=== PATIENT | male | born 1995 | race American Indian/Alaskan Native ===

== ENCOUNTER 2019-04-15 10:06 | Emergency (ER) | payer OTHER, SELFPAY ==
[2019-04-15 10:14] VITALS: BP 115/60; PULSE 94; RESP 20; TEMP 37.7; O2SAT 99; BMI 38.9
--- NOTE | 2019-04-15 10:47 | ED_ITS ---
HPI - URI/Sore Throat General Chief Complaint: Upper Respiratory Symptoms Stated Complaint: TESTED POSTITIVE FOR STREP Time Seen by Provider: 04/15/19 10:18 Source: patient Mode of arrival: ambulatory Limitations: no limitations History of Present Illness HPI Narrative: Patient is a 23-year-old male who presents with sore throat ongoing for the last 5 days. He was seen and evaluated by PCP at the clinic actually had negative strep but clinically appeared strep and was put on Zithromax in. He was re-evaluated today had worsening symptoms. He was sent to the ED for further evaluation for possible peritonsillar abscess. He has decreased oral intake he has urinated a little bit. He is able to swallow some of his secretions however he is still spitting up some. MD Complaint: fever and sore throat Related Data Home Medications Medication Instructions Recorded Confirmed azithromycin 250 mg PO DAILY 04/15/19 Previous Rx's Medication Instructions Recorded clindamycin HCl 300 mg PO QID #28 cap 04/15/19 Allergies Allergy/AdvReac Type Severity Reaction Status Date / Time Penicillins [PENICILLINS] Allergy Unknown Verified 04/15/19 11:06 Sulfa (Sulfonamide Allergy Unknown Verified 04/15/19 11:06 Antibiotics) [SULFA (SULFONAMIDE ANTIBIOTICS)] Review of Systems Review of Systems GENERAL: Denies chills, fatigue, malaise, fever, sweats, travel HEENT: See HPI RESPIRATORY: Denies dyspnea, cough, wheezing, hemoptysis, sputum. CARDIOVASCULAR: Denies chest pain, palpitations, orthopnea, edema GASTROINTESTINAL: Denies nausea, vomiting, abdominal pain, diarrhea, constipation, melena. : Denies dysuria, frequency, incontinence, hematuria, urinary retention, flank pain. MUSCULOSKELETAL: Denies weakness, joint pain, or bony pain SKIN: No rash, no erythema, no pruritus NEUROLOGIC: Denies weakness, dizziness, headache, numbness, change in speech, confusion PSYCHIATRIC: No concerning psychosocial issues. 12 point review of systems is negative except for those stated above and HPI [facility] [place] Medical History Patient denies significant medical history (Acute) Social History Smoking Status: Never smoker Social History Smoking Status: Never smoker Exam Initial Vital Signs Initial Vital Signs: Vital Signs Temperature 99.9 F H 04/15/19 10:14 Pulse Rate 94 H 04/15/19 10:14 Respiratory Rate 20 04/15/19 10:14 Blood Pressure 115/60 04/15/19 10:14 Pulse Oximetry 99 04/15/19 10:14 GENERAL: Slightly ill-appearing male sitting upright spitting into blue bag. HEENT: Head atraumatic,EOMI, pupils reactive, PHARYNX: Erythematous petechiae on roof of mouth no uvula deviation. He does have some exudate on his right tonsil. Airway is patent CARDIOVASCULAR: Regular rate and rhythm without murmurs, rubs or gallops. RESPIRATORY: Breath sounds equal bilaterally, no wheezes rales or rhonchi. ABDOMEN: Soft, nontender. Normoactive bowel sounds all 4 quadrants. No guarding or rebound. EXTREMITIES: Normal range of motion, no clubbing or edema. Neurovascularly intact NEUROLOGICAL: Alert and oriented x4.Normal gait and speech. Cranial nerves II through XII grossly intact. SKIN: Warm, dry, no laceration, no petechiae, no rashes or lesions. Course Orders Ordered: ED Orders 04/15/19 11:00 Complete Blood Count AUTO DIFF Stat Comprehensive Metabolic Panel Stat Lactate (Lactic Acid) Stat 04/15/19 11:18 Blood Culture Stat Discontinued Medications Dexamethasone (Decadron) 10 mg IV NOW ONE Stop: 04/15/19 10:48 Last Admin: 04/15/19 11:07 Dose: 10 mg Clindamycin Phosphate (Cleocin) 600 mg in 50 mls @ 50 mls/hr IV NOW ONE Stop: 04/15/19 11:46 Last Infusion: 04/15/19 12:15 Dose: 0 mls/hr Admin: 04/15/19 11:07 Dose: 50 mls/hr Sodium Chloride (Normal Saline 0.9%) 1,000 mls @ 1,000 mls/hr IV BOLUS ONE Stop: 04/15/19 11:46 Last Infusion: 04/15/19 12:55 Dose: 0 mls/hr Infusion: 04/15/19 11:11 Dose: 450 mls/hr Admin: 04/15/19 11:07 Dose: 1,000 mls/hr Sodium Chloride (Normal Saline 0.9%) 1,000 mls @ 1,000 mls/hr IV BOLUS ONE Stop: 04/15/19 12:40 Last Infusion: 04/15/19 13:43 Dose: 0 mls/hr Admin: 04/15/19 13:00 Dose: 1,000 mls/hr Vital Signs - 8 hr 04/15/19 10:14 04/15/19 11:15 04/15/19 12:00 Temperature 99.9 F H Pulse Rate 94 H 90 88 Respiratory Rate 20 20 17 Blood Pressure 115/60 Blood Pressure [Left Arm] 118/62 120/57 L Pulse Oximetry 99 98 94 04/15/19 13:31 Temperature 99.6 F Pulse Rate 77 Respiratory Rate 18 Blood Pressure Blood Pressure [Left Arm] 111/54 L Pulse Oximetry 96 MDM - URI/Sore Throat Lab Data Attestation: I reviewed the patient's lab results. Result diagrams: 04/15/19 11:00 04/15/19 11:00 Lab Results 04/15/19 04/15/19 04/15/19 Range/Units 11:00 11:00 11:00 WBC 18.5 H (4.5-11.0) X10^3/uL RBC 5.21 (4.5-5.9) X10^6/uL Hgb 14.0 (13.5-17.5) g/dL Hct 41.7 (41-53) % MCV 80.1 (80-100) fL MCH 26.9 (26-34) PG MCHC 33.5 (30-36) % RDW 13.1 (11.6-14.8) % Plt Count 238 (150-400) X10^3/uL Neut % (Auto) 78.3 H (50-75) % Lymph % (Auto) 10.3 L (25-40) % [place] % (Auto) 11.1 (3-14) % Eos % (Auto) 0.1 L (2-4) % Baso % (Auto) 0.2 (0-2) % Neut # (Auto) 72690 H (7566-7702) /uL Lymph # (Auto) 1900 (9525-9921) /uL [place] # (Auto) 2100 H (0-900) /uL Eos # (Auto) 0 (0-450) /uL Baso # (Auto) 0 (0-100) /uL Sodium 138 (137-145) mmol/L Potassium 3.9 (3.4-5.1) mmol/L Chloride 100 (98-107) mmol/L Carbon Dioxide 29 (22-32) mmol/L BUN 15 (9-20) mg/dL Creatinine 1.10 (0.66-1.25) mg/dL Estimated GFR > 60.0 (>60) mL/min BUN/Creatinine Ratio 13.6 (6-22) Glucose 101 H (70-100) mg/dL Lactate 0.9 (0.7-2.1) mmol/L Calcium 8.9 (8.4-10.2) mg/dL Total Bilirubin 2.3 H (0.2-1.3) mg/dL AST 26 (17-59) IU/L ALT 29 (21-72) IU/L Alkaline Phosphatase 77 (38-126) U/L Total Protein 8.4 H (6.3-8.2) g/dL Albumin 4.4 (3.5-5.0) g/dL Globulin 4.0 (1.7-4.1) g/dL Albumin/Globulin Ratio 1.1 (1.0-2.8) MDM Narrative Medical decision making narrative: Patient is tolerating oral fluids. He had a negative strep again at the clinic today however it might be partially treated. He had been positive ASO. Will put him on clindamycin which has better strep coverage. He did get what sounds like 4 doses of steroids he was taking it twice a day last dose was yesterday morning. He did get 1 dose of dexamethasone here in the ED. He overall is feeling much better. He got a dose of IV antibiotics in the ED as well. Discussed very strict warning signs and when to return to the ED with both patient and spouse. Discharge Plan Departure Patient Disposition: Home Clinical Impression: Abscess, peritonsillar Discharge Date/Time: 04/15/19 13:59 Interventions: ED Discharge Assessment Last Done: 04/15/19 13:57 Instructions: Peritonsillar Abscess Activity Restrictions/Additional Instructions: *You have been diagnosed with peritonsillar abscess *What to do: Increase fluid intake, Jell-O, applesauce, Gatorade, something with sugar and electrolytes *Continue to take medications as directed Clindamycin 300 mg 4 times a day *Follow up with your primary care provider in 2-3 days *Return to ER if you should have inability to swallow, increasing pain, decreased oral intake or any new, worsening or concerning symptoms Prescriptions: New clindamycin HCl 300 mg capsule 300 mg PO QID Qty: 28 RF: 0 No Action azithromycin 250 mg tablet 250 mg PO DAILY RF: 0 Referrals: Babs Loving MD [Primary Care Provider] -
[2019-04-15] MEDS: SODIUM CHLORIDE 0.9% 1,000 ML 1000 ML IV ×2 (11:07→13:00)
[2019-04-15] MEDS: CLINDAMYCIN 600 MG/50 ML PIGGYBACK 50 MG IV (11:07)
[2019-04-15] MEDS: DEXAMETHASONE 10 MG/ML VIAL IV (11:07)
--- NOTE | 2019-04-15 11:12 | PC.NURSE ---
sorethroat for a week and half, fever/swelling of throat/neck 4 days, unable to swallow due to pain, at this time, hurts to talk, noted pt spitting (green ,from coolaid) unable to swallow due to pain.
[2019-04-15 11:15] VITALS: BP 118/62; PULSE 90; RESP 20; O2SAT 98
--- NOTE | 2019-04-15 11:15 | PC.NURSE ---
for second culture
--- NOTE | 2019-04-15 11:16 | PC.NURSE ---
airway patent, no respiratory distress, noted neck with swelling, tender with palpation, skin warm dry pink.
[2019-04-15 11:18] LABS: Add Manual Diff / Slide Review NO; Basophils Absolute Auto 0 /uL (0-100); Basophils Percent Auto 0.2 % (0-2); Eosinophils Absolute Auto 0 /uL (0-450); Eosinophils Percent Auto 0.1 % (2-4); Hematocrit 41.7 % (41-53); Lymphocytes Absolute Auto 1900 /uL (1100-4500); Lymphocytes Percent Auto 10.3 % (25-40); Mean Corpuscular HGB Conc 33.5 % (30-36); Mean Corpuscular Hemoglobin 26.9 PG (26-34); Mean Corpuscular Volume 80.1 fL (80-100); Monocytes Absolute Auto 2100 /uL (0-900); Monocytes Percent Auto 11.1 % (3-14); Neutrophils Absolute Auto 14500 /uL (1500-7000); Neutrophils Percent Auto 78.3 % (50-75); Platelet Count 238 X10^3/uL (150-400); Red Blood Cell Count 5.21 X10^6/uL (4.5-5.9); Red Cell Distribution Width 13.1 % (11.6-14.8); White Blood Cell Count 18.5 X10^3/uL (4.5-11.0)
[2019-04-15 11:32] LABS: Alanine Aminotransferase 29 IU/L (21-72); Albumin 4.4 g/dL (3.5-5.0); Albumin Globulin Ratio 1.1 (1.0-2.8); Alkaline Phosphatase 77 U/L (38-126); Aspartate Aminotransferase 26 IU/L (17-59); BUN Creatinine Ratio 13.6 (6-22); Bilirubin Total 2.3 mg/dL (0.2-1.3); Blood Urea Nitrogen 15 mg/dL (9-20); Calcium 8.9 mg/dL (8.4-10.2); Carbon Dioxide 29 mmol/L (22-32); Chloride 100 mmol/L (98-107); Estimated Glomerular Filt Rate > 60.0 mL/min (>60); Glucose 101 mg/dL (70-100); HEMOLYSIS < 15 (0-50); Potassium 3.9 mmol/L (3.4-5.1); Sodium 138 mmol/L (137-145); Total Protein 8.4 g/dL (6.3-8.2)
[2019-04-15 11:33] LABS: Lactate (Lactic Acid) 0.9 mmol/L (0.7-2.1)
[2019-04-15 12:00] VITALS: BP 120/57; PULSE 88; RESP 17; O2SAT 94
[2019-04-15 13:31] VITALS: BP 111/54; PULSE 77; RESP 18; TEMP 37.6; O2SAT 96
== END 2019-04-15 13:59 | disposition home or self-care (01) ==
PROVIDERS: Emergency Provider Emergency Medicine; PCP Family Medicine
DX: J36 Peritonsillar abscess (principal)
CPT/HCPCS: 36415; 36591; 80053; 83605; 85025; 87040; 96361; 96365; 96375; 99284; J1100

== ENCOUNTER 2022-02-03 18:09 | Emergency (ER) | payer OTHER, SELFPAY ==
[2022-02-03 18:35] VITALS: BP 130/60; PULSE 84; RESP 16; TEMP 36.7; O2SAT 99; BMI 43.0
--- NOTE | 2022-02-03 19:33 | ED_ITS ---
HPI - Skin/Abscess/Foreign Bdy <Storm Harding PA-C - Last Filed: 02/03/22 19:59> General Chief complaint: Skin/Abscess/Foreign Body Stated complaint: hives from yesterday morning, not going away Time Seen by Provider: 02/03/22 19:23 Source: patient Mode of arrival: Ambulatory History of Present Illness HPI narrative: Patient is a 26-year-old male presenting to the emergency department today for evaluation a rash. Patient states that he broke out in hives yesterday that had not improved this morning. He states he took Benadryl at approximately 3:00 p.m. today and states that the rash over his chest and upper arms seem to have improved. He explains that the rash on his bilateral thighs has yet to subside however. He states that he believes he may be allergic to a new laundry detergent that his family is using, as he explains that the rash developed shortly after putting on clothes fresh out of the milk drier. He denies fever, chills, chest pain, cough, shortness of breath, nausea, vomiting, diarrhea, abdominal pain, constipation, dysuria, hematuria, throat swelling, throat pain, or any other concerning symptoms. No further concerns were voiced at this time. Related Data Home Medications Medication Instructions Recorded Confirmed azithromycin 250 mg tablet 250 mg PO DAILY 04/15/19 Previous Rx's Medication Instructions Recorded clindamycin HCl 300 mg capsule 300 mg PO QID #28 cap 04/15/19 Allergies Allergy/AdvReac Type Severity Reaction Status Date / Time Penicillins [PENICILLINS] Allergy Unknown Verified 02/03/22 18:40 Sulfa (Sulfonamide Allergy Unknown Verified 02/03/22 18:40 Antibiotics) [SULFA (SULFONAMIDE ANTIBIOTICS)] Review of Systems <Storm Harding PA-C - Last Filed: 02/03/22 19:59> Constitutional Constitutional: Denies chills, Denies fatigue, Denies fever(s), Denies frequent falls, Denies lethargy and Denies weakness Eyes Eyes: Denies loss of vision ENT Ears, Nose, Mouth, and Throat: Denies change in voice, Denies dizziness, Denies neck pain, Denies sore throat and Denies throat swelling Cardiovascular Cardiovascular: Denies chest pain, Denies irregular heart rhythm, Denies lightheadedness, Denies palpitations, Denies dyspnea, Denies dyspnea on exertion and Denies orthopnea Respiratory Respiratory: Denies cough, Denies dyspnea, Denies dyspnea on exertion and Denies wheezing Gastrointestinal Gastrointestinal: Denies abdominal pain, Denies change in bowel habits, Denies diarrhea, Denies nausea and Denies vomiting Genitourinary Genitourinary: Denies hematuria, Denies flank pain, Denies urinary incontinence and Denies urinary urgency Musculoskeletal Musculoskeletal: Denies back pain, Denies muscle weakness, Denies neck pain, Denies numbness and Denies tingling Integumentary/Breasts Skin/Breast: Denies pruritus, Denies erythema, Reports rash (Thighs, chest, arms) and Denies wounds Neurologic Neurologic: Denies behavioral changes, Denies confusion, Denies dizziness, Denies frequent falls, Denies loss of vision, Denies numbness, Denies tingling and Denies weakness Psychiatric Psychiatric: Denies behavioral changes and Denies confusion Endocrine Endocrine: Denies fatigue and Denies palpitations Allergic/Immunologic Allergic/Immunologic: Denies throat swelling and Denies wheezing Patient History <Storm Harding PA-C - Last Filed: 02/03/22 19:59> Medical History (Updated 02/03/22 @ 19:55 by Storm Harding PA-C) Patient denies significant medical history Social History Smoking Status: Never smoker Smoking Status: Never smoker tobacco type: smokeless tobacco alcohol intake frequency: 0-2 drinks per day Substance Use Type: does not use Exam <Storm Harding PA-C - Last Filed: 02/03/22 19:59> Narrative Exam Narrative: GENERAL: 26 year old patient appears stated age. Well-developed patient, in no acute distress. Large body habitus. HEAD: Atraumatic. Normocephalic. EYES: Pupils equal round and reactive. Extraocular motions intact. No scleral icterus. No injection or drainage. ENT: Nose without bleeding, purulent drainage. Throat without erythema, tonsillar hypertrophy or exudate. Airway patent. No pharyngeal swelling. NECK: Trachea midline. Non tender CARDIOVASCULAR: Regular rate and rhythm without murmurs, gallops, or rubs. RESPIRATORY: Clear to auscultation. Breath sounds equal bilaterally. No wheezes, rales, or rhonchi. Breathing is nonlabored. GASTROINTESTINAL: Abdomen soft, non-tender, nondistended. EXTREMITIES: No edema or joint tenderness. BACK: Nontender without deformity or crepitance. No flank tenderness. NEURO: AOx3. SKIN: Scattered erythematous raised macules noted about the anterior thighs bilaterally. No appreciable excoriations appreciated. No active discharge noted. No significant similar rash appreciated over the abdomen, chest, upper arms, or elsewhere on gross examination. Initial Vital Signs Initial Vital Signs: Vital Signs Temperature 98.0 F 02/03/22 18:35 Pulse Rate 84 02/03/22 18:35 Respiratory Rate 16 02/03/22 18:35 Blood Pressure 130/60 02/03/22 18:35 Pulse Oximetry 99 02/03/22 18:35 <Aubrie Espinal DO - Last Filed: 02/04/22 02:48> Initial Vital Signs Initial Vital Signs: Vital Signs Temperature 98.0 F 02/03/22 18:35 Pulse Rate 84 02/03/22 18:35 Respiratory Rate 16 02/03/22 18:35 Blood Pressure 130/60 02/03/22 18:35 Pulse Oximetry 99 02/03/22 18:35 Course <Storm Harding PA-C - Last Filed: 02/03/22 19:59> Course Course Narrative: Intramuscular Solu-Medrol administered. Orders Ordered: Discontinued Medications Methylprednisolone (Methylprednisolone 40 Mg/Ml Vial) 40 mg INJ NOW ONE Stop: 02/03/22 19:27 Last Admin: 02/03/22 19:52 Dose: 40 mg Documented by: VINITA Vital Signs Vital signs: Vital Signs - 8 hr 02/03/22 20:05 Pulse Rate 80 Respiratory Rate 18 Blood Pressure 129/71 Pulse Oximetry 97 <Aubrie Espinal DO - Last Filed: 02/04/22 02:48> Orders Ordered: Discontinued Medications Methylprednisolone (Methylprednisolone 40 Mg/Ml Vial) 40 mg INJ NOW ONE Stop: 02/03/22 19:27 Last Admin: 02/03/22 19:52 Dose: 40 mg Documented by: VINITA Vital Signs Vital signs: Vital Signs - 8 hr 02/03/22 20:05 Pulse Rate 80 Respiratory Rate 18 Blood Pressure 129/71 Pulse Oximetry 97 MDM - Skin/Abscess/Foreign Bdy <Storm Harding PA-C - Last Filed: 02/03/22 19:59> MDM Narrative Medical decision making narrative: Differential diagnosis to consider but not limited to hives versus anaphylaxis versus cellulitis versus abscess versus eczema. Patient was administered intramuscular Solu-Medrol and instructed to take another dose Benadryl prior to bed tonight. I advised the patient to follow-up with his primary care provider for further evaluation within the next 2-3 days. Patient expresses understanding and agrees to plan. He states that this time he is comfortable being discharged home and is stable for discharge. Strict return precautions were discussed with the patient prior to discharge. Discharge Plan Departure Patient Disposition: Home Clinical Impression: Acute urticaria, Contact allergic reaction Instructions: DI for Hives Activity Restrictions/Additional Instructions: *You have been diagnosed with acute urticaria, contact allergic reaction *What to do: *Please continue to take your regular medications as directed. [ ] New medication prescriptions sent to your pharmacy: [ ] [ ] New medication written as a paper prescription [X] No new medications given You were evaluated in the emergency department today for rash. You were provided with an intramuscular steroid injection during her stay in the emergency department. I recommend that you take another dose of Benadryl prior to bed tonight. Your rash should begin to clear up with continued use of Benadryl. I recommend the follow-up the primary care provider within the next 2-3 days for further evaluation. Please do not hesitate to return to the emergency department if you experience throat swelling, difficulty breathing, spreading of the rash, or any other concerning symptoms. *Please follow up with your primary care provider in 2-3 days, call for an appointment. Let them know you were seen in the Emergency Department and that we ask that you be seen in follow up. We will electronically transmit a record of today's note if your PCP is in our system *If you do not have a primary care provider please contact the [facility] Resource line at [phone]. They will ask some questions about your medical history and help get you set up with a doctor in the community. *Return to Emergency Department if you should have any new, worsening or concerning symptoms, such as fever greater than 101 F, shaking chills, worsening pain, persistent vomiting or other bothersome symptoms. Prescriptions: No Action azithromycin 250 mg tablet 250 mg PO DAILY 0RF Label Comments: TAKE 2 TABLETS BY MOUTH TODAY THEN 1 TABLET DAILY FOR 4 DAYS clindamycin HCl 300 mg capsule 300 mg PO QID Qty: 28 0RF Referrals: Babs Loving MD [Primary Care Provider] - <Aubrie Espinal DO - Last Filed: 02/04/22 02:48> Cosign ED Attending Cosignature Attestation: I was immediately available in the department for consultation. Documentation has been reviewed.
[2022-02-03 20:05] VITALS: BP 129/71; PULSE 80; RESP 18; O2SAT 97
== END 2022-02-03 20:05 | disposition home or self-care (01) ==
PROVIDERS: Emergency Provider Physician Assistant; PCP Family Medicine
DX: L50.9 Urticaria, unspecified (principal); T78.49XA Other allergy, initial encounter
CPT/HCPCS: 96372; 99283; J2920

== ENCOUNTER → 2022-10-21 12:32 | Outpatient (CLI) | payer OTHER, SELFPAY ==
--- NOTE | 2022-10-21 12:38 | DI.RAD.S_ITS ---
PROCEDURE: XR HAND LT MIN 3V INDICATIONS: CELLULITIS OF LEFT UPPER EXTREMITY TECHNIQUE: 3 views of the hand(s) acquired. COMPARISON: None. FINDINGS: Bones: No fractures or dislocations. Carpal bones are normally aligned. No suspicious bony lesions. Soft tissues: No suspicious soft tissue calcifications. No radiopaque foreign body. IMPRESSION: No acute osseous abnormality. No radiopaque foreign body. Dictated by: Jovani Vicente M.D. on 10/21/2022 at 14:37 Approved by: Jovani Vicente M.D. on 10/21/2022 at 14:39
== END ==
PROVIDERS: PCP Family Medicine; Referring Provider Physician Assistant; Visit Provider Physician Assistant
DX: L03.114 Cellulitis of left upper limb (principal)
CPT/HCPCS: 73130